=== PATIENT | female | born 1965 | race Caucasian/White ===

== ENCOUNTER → 2020-10-29 12:31 | Outpatient (CLI) | payer OTHER, SELFPAY ==
[2020-10-20 08:46] VITALS: BMI 24.3
--- NOTE | 2020-10-29 12:33 | US_ITS ---
STUDY: RENAL ULTRASOUND - COMPLETE REASON FOR EXAM: Female, 55 years old. UTEROVAGINAL PROLAPSE OF BLADDER TECHNIQUE: Ultrasound evaluation of the kidneys was performed with real-time and static medrano-scale imaging. COMPARISON: None. FINDINGS: RIGHT KIDNEY: Normal location of the right kidney, which is normal in size. The right kidney measures 9.5 cm x 5.5 cm x 4.2 cm. There is a normal cortex of the right kidney. The renal cortex measures 1.2 cm. There is no right renal mass or cyst. There are no right renal calculi. There is mild hydronephrosis of the right kidney. DISTAL RIGHT URETER: There is non-visualization of the distal right ureter. There is no demonstrated right ureterovesical junction calculus. There is a visualized right ureteral jet. LEFT KIDNEY: with mild renal atrophy. The left kidney measures 8.4 cm x 4.8 cm x 6.1 cm. There is a normal cortex of the left kidney. The renal cortex measures 1.4 cm. There is no left renal mass or cyst. There are no left renal calculi. There is no left hydronephrosis. DISTAL LEFT URETER: There is non-visualization of the distal left ureter. There is no demonstrated left ureterovesical junction calculus. There is a visualized left ureteral jet. BLADDER: The distended urinary bladder has a volume of 532 ml. There is a normal wall thickness of the distended urinary bladder. There is no demonstrated mass within the urinary bladder. There are no demonstrated bladder calculi. US/Kidney and Bladder IMPRESSION: Mild degree of cortical atrophy of the left kidney. Mild right hydronephrosis. Electronically Signed: Xiang Chadwick MD at 15:12 EDT , Service support ,
== END ==
PROVIDERS: PCP Family Medicine; Referring Provider Urology; Visit Provider Urology
DX: N81.4 Uterovaginal prolapse, unspecified (principal); N28.9 Disorder of kidney and ureter, unspecified
CPT/HCPCS: 76770

== ENCOUNTER 2020-10-30 11:58 | Observation (INO) | payer OTHER, SELFPAY ==
[2020-08-13 10:32] VITALS: BMI 24.3
[2020-10-20 08:46] VITALS: BMI 24.3
--- NOTE | 2020-10-23 10:46 | EKG12_ITS ---
Test Reason : PRE OP Blood Pressure : / mmHG Vent. Rate : 057 BPM Atrial Rate : 057 BPM P-R Int : 162 ms QRS Dur : 104 ms QT Int : 396 ms P-R-T Axes : 022 065 050 degrees QTc Int : 385 ms Sinus bradycardia Otherwise normal ECG Confirmed by ROGELIO AGUILA, PEMA ([id number]), continuity editor KRYSTA HAHN ([id number]) on 10/26/2020 10:49:35 AM Referred By: Kelly Celaya Confirmed By:PEMA MERCADO MD
[2020-10-28 12:36] LABS: Absolute Lymphocyte Count 2.09 X10^3/uL (0.83-4.51); Absolute Neutrophil Count 2.4 X10^3/uL (2.0-7.7); Eosinophil# 0.08 X10^3/uL; Eosinophils% 1.6 % (0-5); Hematocrit 39.7 % (37-47); Lymphocyte # 2.09 X10^3/ul (0.83-4.51); Lymphocyte % 42.6 % (19-41); Mean Corp Hgb Conc 32.7 g/dL (32-36); Mean Corpuscular Hgb 29.3 pg (27.0-32.0); Mean Corpuscular Volume 89.6 fL (81-99); Mean Platelet Vol. 8.9 fl (6.2-12.0); Monocyte# 0.38 X10^3/uL; Monocyte% 7.7 % (0-10); NRBC Flagged by Analyzer 0 % (0-5); Neutrophil # 2.35 X10^3/uL (2.7-7.7); Neutrophil % 47.9 % (47-70); Platelet Count 247 K/mm3 (150-450); RBC Distribution Width CV 12.4 % (11.6-14.6); RBC Distribution Width SD 40.7 fl (35.1-43.9); Red Blood Count 4.43 M/mm3 (4.2-5.4); White Blood Count 4.9 K/mm3 (4.4-11.0)
[2020-10-28 13:00] LABS: Anion Gap 5 (5-15); BUN 22 mg/dL (7-18); BUN/Creat Ratio 17.9 RATIO (10-20); Calcium,Total 9.1 mg/dL (8.5-10.1); Chloride 104 mmol/L (98-107); Creatinine, Serum 1.23 mg/dL (0.55-1.02); EST Glomerular Filtration Rate 49 mL/min (>60); Est Glom Filt Rate - Afr Amer 59 mL/min (>60); Glucose 84 mg/dL (74-106); Sodium Level 140 mmol/L (136-145)
[2020-10-28 13:01] LABS: Magnesium 2.3 mg/dL (1.6-2.6)
--- NOTE | 2020-10-29 16:50 | HP.PCM_ITS ---
History and Physical Date of Admission: 10/29/20 [facility] [id number] [place] [address] [phone] OFFICE VISITDate of Service: 10/20/20 MR#:[id number]: PACHECO KING [facility] #:[id number]:[id number] Provider:Dr. 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 Is patient in pain?: No Allergies No Known Allergies Allergy (Verified 08/13/20 10:25) Medications lamotrigine 150 mg tablet 300 mg PO ONCE tablet 08/13/20 [History Confirmed 10/20/20] multivitamin 1 tablet PO DAILY 08/13/20 [History Confirmed 10/20/20] olanzapine 5 mg tablet 5 mg PO DAILY 08/13/20 [History Confirmed 10/20/20] estradiol 1 appful VAGINAL DAILY 10/20/20 [History Confirmed 10/20/20] Is last menstrual period known: No Post menopausal: No Patient : No : No [facility], [facility] Medical History Bipolar 1 disorder, depressed Surgical History H/O unilateral salpingectomy S/P dilation and curettage Status post skin graft Family History Father Myocardial infarction Other Bipolar 1 disorder, depressed Esophageal cancer Social History Smoking Status: Never smoker alcohol intake: never substance use type: does not use caffeine: Yes what type of physical activity do you participate in: none seatbelt use: always do you feel safe at home: Yes additional social history: -[facility]jon [facility] TVH BS Details: PACHECO KING is a 55 year old who presents for preop appointment for uterovaginal prolapse, undergoing reapir with Dr Self. Female Reproductive History Menopausal Symptoms: No night sweats Pregancy History 7 Elective abortions Hx Para 4 Spontaneous abortions 2 Hx # Term Pregnancies Ectopic pregnancies 1 Hx # Pregnancies Multiple births # of living children Past Pregnancies Del. Date Name GA/Weeks Outcome Route Bth Weight Infant Gen Labor Lgth Anesthesia Del Locatn Provider FOB Unknown Fei Unknown Julien Unknown Mei Unknown Mamta ROS Const Constitutional: Denies fatigue, night sweats, weight gain or weight loss ENT ENT: Reports system reviewed and no additional complaints, except as documented Cardio Card: Denies chest pain Resp Resp: Denies cough or dyspnea GI GI: Reports as per HPI; Denies abdominal pain, constipation, nausea or vomiting : Denies nipple discharge, urinary frequency, urinary incontinence, urinary hesitancy, urinary urgency, vaginal discharge, vaginal dryness, vaginal odor or vaginal pruritus Musc Musc: Denies arthralgias, back pain or muscle weakness Skin Skin/Breast: Denies alopecia, change in hair, dry skin, breast mass, breast pain, breast skin changes or nipple discharge Neuro Neuro: Reports system reviewed and no additional complaints, except as documented Psych Psych: Reports system reviewed and no additional complaints, except as documented Endo Endo: Denies cold intolerance, excessive sweating, heat intolerance or polydipsia Sebastián/Lymph Hematologic/Lymphatic: Denies easy bleeding, Denies easy bruising and Denies lymphadenopathy Exam Const General: cooperative, healthy appearing, comfortable, no acute distress and well developed Orientation: alert HENIL Head: normal to inspection and normocephalic Ears: hearing grossly normal bilaterally and external ears normal Nose: external nose normal and nares normal Face and sinus: normal facial exam Neck Neck: normal visual inspection and no lymphadenopathy Thyroid: thyroid normal Chest Chest palpation & inspection: normal inspection of the chest Resp Effort & Inspection: normal respiratory effort Auscultation: clear to auscultation bilaterally Cardio Rate: regular rate Rhythm: regular rhythm Heart Sounds: S1 normal and S2 normal GI Inspection: normal to inspection and non-distended Palpation: soft and no hepatosplenomegaly Musc Other: gross motor intact no deficits, full bilateral strength Skin General: no rashes or lesions noted Neuro General: patient alert, patient awake, moves all extremities and no focal motor deficits Motor: muscle tone normal throughout Extrem General: normal to inspection and no pedal edema Psych Appearance: grossly normal Mental Status: mental status grossly normal Affect: normal affect Speech and Movement: speech and movement normal Coding Level of Care Code No Charge Diagnoses Incomplete uterovaginal prolapse N81.2 Assessment and Plan Assessment and Plan (1) Incomplete uterovaginal prolapse: Status: Chronic Comment: plan TVH unilateral salipingectomy combo case with madina. Plan - Dr. Kelly Celaya MD: After discussing the patient's diagnosis and treatment plan options, patient wishes to proceed with surgical management. I have discussed with the patient the risks, benefits, and alternatives of the procedure which include but are not limited to risks of anesthesia, bleeding, infection, possible damage to bowel, bladder, or surrounding vasculature which could lead to additional surgery to evaluate any complications. Patient agrees to procedure and wishes to proceed. ACOG/uptodate references given for additional information regarding procedure. UPDATE- I have seen the patient and performed any clinically relevant updates to the history and physical exam. Kelly Celaya MD
[2020-10-30] VITALS (13 sets, daily range): BP systolic 92–116; BP diastolic 57–76; PULSE 56–73; RESP 14–18; TEMP 36.3–36.8; O2SAT 90–100; BMI 25.0
[2020-10-30] MEDS: Phenazopyridine 95 MG Tablet 190 MG PO (06:30)
[2020-10-30] MEDS: Celecoxib 200 MG Capsule 400 MG PO (06:31)
[2020-10-30] MEDS: Gabapentin 600 MG Tablet PO (06:31)
[2020-10-30] MEDS: Acetaminophen 500 MG Tablet 1000 MG PO ×3 (06:31→22:59)
[2020-10-30] MEDS: Scopolamine 1mg/72hr Patch 1 PATCH TD (06:32)
[2020-10-30] MEDS: Enoxaparin 40 MG/0.4 ML Syringe SC (06:33)
[2020-10-30] MEDS: Lactated Ringers 1,000 ML 40 ML IV ×2 (06:33→10:24)
[2020-10-30] MEDS: dexAMETHasone 10 MG/ML Vial 8 MG IV (06:34)
[2020-10-30] MEDS: Cefazolin 2 GM in 0.9% Normal Saline 100 ML IV (07:28)
--- NOTE | 2020-10-30 07:30 | HYST_PTH ---
PATIENT: PACHECO KING LOC: MS3 U#:[id number] AGE/SX: 55/F ROOM: RI317 RE10/30/[address]: Dr. Kelly Celaya MD : 1965 BED: 1 DIS: 10/31/2020 SPEC #: [id number] RECD: 10/30/20 12:55 STATUS: HAILE POLLACK #: [id number] PASCUAL: 10/30/20 07:[address]: Kelly Celaya DEPT: SURGICAL PATHOLOGY RECD BY: Mae Hastings ENTERED: 10/30/20 13:25 SP TYPE: HYSTERECT OTHR DR: MD Dr. Inez Ayala MD Dr. Robert Hart, MD Tissues: Uterus, NOS Procedures: Surgery Specimen Level V HEADER OPERATION: ERAS, vaginal hysterectomy, right salpingectomy PRE-OP DIAGNOSIS: Incomplete uterovaginal prolapse N81.2 TISSUE SUBMITTED: Uterus, cervix and right fallopian tube MICROSCOPIC DIAGNOSIS Uterus, hysterectomy: Cervix ? nabothian cysts and mild chronic inflammation. Endometrium ? proliferative endometrium. Endometrial polyp ? simple hyperplasia without atypia. Myometrium ? superficial adenomyosis. Right fallopian tube ? no pathologic change. AM:kayla 11/03/2020 MICROSCOPIC DESCRIPTION Slides are reviewed. GROSS DESCRIPTION Received in fixative is one container labeled with the patient's name and designated uterus, cervix and right fallopian tube. The specimen consists of a hysterectomy specimen consisting of uterus with cervix and detached one fallopian tube identified as right fallopian tube. The uterus with cervix weighs 105 gm and measures 10 x 6 x 4 cm. The serosal surface is ziegler, glistening. The ectocervical mucosa is unremarkable. The external os is oval and patulous in contour. The endocervical canal measures 3 cm in length and the endocervical mucosa is ziegler, glistening and unremarkable. The triangular endometrial cavity measures 4.5 cm in length and 2.5 cm in width. The endometrium shows a ziegler-pink polyp at the fundus measuring 1.5 x 1 x 0.2 cm. The myometrial wall underneath the polyp is not indurated. The rest of the endometrium is ziegler, congested, glistening and measures 0.1 cm in thickness. Sections of the uterine wall do not reveal any mass lesion and measures up to 2.5 cm in thickness. The detached right fallopian tube measures 3.5 cm in length and 0.5 cm in diameter. The fimbrial end is identified. Sections do not reveal any mass lesion. Weed Burner sections are submitted in eight cassettes as follows: 1??anterior cervix, 2 - posterior cervix, 3 & 4 - anterior uterine wall, 5 & 6 - posterior uterine wall, 7??endometrial polyp with underlying uterine wall, entirely submitted, 8 - right fallopian tube. / CLAUDIO:kayla 10/30/20 TC:1 CPT: 74836
--- NOTE | 2020-10-30 07:34 | PCM.OPRPT ---
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 Preoperative antibiotics and SCDs and Velazco catheter was placed inside the bladder. Weighted speculum was placed in the vagina and the anterior and posterior lip of the cervix was grasped with 2 Rosy clamps and circumferentially injected with dilute vasopressin. A circumferential incision was made with a scalpel and the posterior cul-de-sac was entered into sharply and a longneck speculum was placed. The anterior cul-de-sac was also dissected down and entered into sharply and the uterosacral ligaments were clamped cut and suture ligated bilaterally followed by the cardinal ligaments which were Clamped cut and suture ligated bilaterally with 0 Monocryl. The uterus serially descended and progressive bites were taken bilaterally up to the level of the utero-ovarian ligament Which was first double ligated with 0 Monocryl and 0 Vicryl on the right side. Diploic adhesions to the posterior left uterine wall and left pelvic sidewall in the cul-de-sac were noted and taken down sharply with no bowel involvement. Danna was placed over the area after adhesions were removed. The utero-ovarian ligament was clamped across and cut after being double ligated with 0 Monocryl 1-0 Vicryl. Excellent hemostasis was noted except for the cuff which would be remedied with cuff closure. Posterior peritoneum was reapproximated along with the cuff closure, incorporating the bilateral uterosacral ligaments. The vagina was closed with [id number] 0 Vicryl pop offs including the posterior and anterior peritoneum in the reapproximation. Excellent hemostasis was noted. All instruments removed from the vagina clear urine was noted at the end of the procedure and dr painter then began her portion of the procedure. Grafts/Implants Used: none Complications none Admit VTE Documentation VTE Present on Admission: No VTE Mechan Device Prophylaxis: SCD's VTE Pharm Prophylaxis ordered?: Yes Procedures Urinary/Genital 52xxx-59xxx: 73740 TVH+BS/O <250gr uterus
--- NOTE | 2020-10-30 07:38 | PCM.DC ---
Discharge Instructions Diet Discharge Diet: No restrictions Activity Discharge Activity: Return to Normal Activity, May Not Drive (while taking narcotic pain medications.) and May Shower May resume sexual activity in: 6-8 weeks Dressing / Incision Call your doctor if your incision/area has: Continuous Slow Oozing, Sudden Increased Bleeding, Increased Pain/ Swelling, Increased Redness and Foul Smelling Discharge Call your doctor if you observe: Fever of 101 or Higher, Inability to urinate, Inability to have a bowel movement and Using more than 1 pad per hour Follow Up Care Please Follow Up With: Kelly Celaya MD Test Results: Test results from this visit will be discussed in further detail at your follow-up appointment, if applicable. Discharge Plan Admission Primary Reason for Your Visit: hysterecotmy and pelvic floor surgery Attending Provider: Kelly Celaya Primary Care Provider: Herve Urrutia Consulting Providers: Inez Beltran ; Ryley Peters Discharge Orders/Prescriptions Prescriptions: New naproxen 250 MG tablet 250 - 500 mg PO Q8H PRN PRN (Reason: MILD PAIN) Qty: 30 RF: 1 oxycodone-acetaminophen [Percocet] 5-325 mg tablet 1 tab PO Q6H PRN (Reason: pain) 7 Days Qty: 20 RF: 0 Continued olanzapine 5 mg tablet 5 mg PO 0100 RF: 0 lamotrigine 150 mg tablet 300 mg PO 0100 RF: 0 multivitamin Tablet 1 tablet PO DAILY RF: 0 estradiol [Estrace] 0.01 % (0.1 mg/gram) cream 1 appful vaginal DAILY RF: 0 Referrals / Follow Up: Herve Urrutia MD [Primary Care Provider] -
[2020-10-30] MEDS: Vasopressin 20 UNITS/ML Vial (07:51)
[2020-10-30 08:06] LABS: Bedside Glucose 83 mg/dL (70-110)
--- NOTE | 2020-10-30 08:25 | OP.PCM_ITS ---
Problems Associated Problem List Diagnoses (1) Incomplete uterovaginal prolapse: (2) Stress incontinence: Report of Operation Date of Procedure: 10/30/20 Pre-Operative Diagnosis: Incomplete uterovaginal prolapse, stress urinary incontinence Post-Operative Diagnosis: Same Surgery/Procedure Performed:: posterior repair, midurethral sling, cystourethroscopy Surgeon: Inez Beltran Type of Anesthesia: General Estimated Blood Loss (mL): 20cc Description of Procedure: The patient is a 55-year-old female with pelvic organ prolapse who presented to the office and elected for definitive surgical intervention after being evaluated with urodynamics, cystoscopy and given intervention options. Informed consent was obtained. The patient was taken to the operating room placed on the operating room table. Anesthesia monitored the head, neck, airway, IV access and vital signs throughout the case. Once anesthesia was appropriately administered the patient was placed into dorsal lithotomy position was prepped and draped in usual sterile fashion. At this time Dr. Celaya proceeded with a hysterectomy and closure of the vaginal cuff. The case was then turned to nh. At this time the anterior compartment revealed intact Rugae with minimal apical defect. The posterior wall revealed decreased perineal body support with a distal rectocele. The posterior wall was isolated and injected submucosally with vasopressin for hydrostatic dissection and hemostatic control. A full-thickness incision was made through the mucosa. Sharp and blunt dissection was performed bilaterally until the rectovaginal fascia was identified. This was brought together in a 2 layer repair and extended down into the perineal body. The vaginal mucosa was minimally trimmed and then the incision was closed with running interlocking 2-0 Vicryl. At this time the mid urethral sling was performed. The mid urethra was isolated and injected submucosally with vasopressin. A midline vertical incision approximately 2 cm in length was then made. Sharp and blunt dissection was performed on either side of the urethra. Using the [place] trochars, the sling was placed without difficulty into the obturator complexes. It was positioned using the tensioning suture which was then cut. It lay against the urethra without tension and flat nature. The incision was closed using running interlocking 2-0 Vicryl. At this time a cystourethroscopy was performed through the urethra under direct visualization. There was no evidence of anterior defect at this time. Bilateral ureteral orifices were clearly visualized on the area of the trigone. There were no injuries to the urinary bladder or foreign bodies within the urinary bladder. There were no other mucosal abnormalities identified. Bilateral ureteral jets were clearly observed. At this time the cystoscope was removed and the Tucker catheter was replaced. The vagina was packed using vaginal packing and estrogen cream. The patient was then awakened and taken to the recovery room in good condition. There were no complications during this procedure. Grafts/Implants Used: Altis midurethral sling Complications none Admit VTE Documentation VTE Present on Admission: Yes VTE Mechan Device Prophylaxis: SCD's VTE Pharm Prophylaxis ordered?: Yes
--- NOTE | 2020-10-30 08:27 | PCM.DC ---
Discharge Instructions Diet Discharge Diet: No restrictions Activity Discharge Activity: May Shower May resume sexual activity in: 6-8 weeks Lifting Restrictions: 5 pounds for 8 weeks, no exercise, no strenuous activity, no vacuuming Dressing / Incision Call your doctor if your incision/area has: Continuous Slow Oozing, Sudden Increased Bleeding, Increased Pain/ Swelling, Increased Redness and Foul Smelling Discharge Call your doctor if you observe: Fever of 101 or Higher, Inability to urinate, Inability to have a bowel movement and Using more than 1 pad per hour Follow Up Care Please Follow Up With: Kelly Celaya MD When: and Ruyb Test Results: Test results from this visit will be discussed in further detail at your follow-up appointment, if applicable. Discharge Plan Admission Primary Reason for Your Visit: hysterecotmy and pelvic floor surgery Attending Provider: Kelly Celaya Primary Care Provider: Herve Urrutia Consulting Providers: Inez Beltran ; Ryley Peters Discharge Orders/Prescriptions Prescriptions: New naproxen 250 MG tablet 250 - 500 mg PO Q8H PRN PRN (Reason: MILD PAIN) Qty: 30 RF: 1 oxycodone-acetaminophen [Percocet] 5-325 mg tablet 1 tab PO Q6H PRN (Reason: pain) 7 Days Qty: 20 RF: 0 cephalexin [cephalexin] 500 MG capsule 500 mg PO Q12 3 Days Qty: 6 RF: 0 Continued olanzapine 5 mg tablet 5 mg PO 0100 RF: 0 lamotrigine 150 mg tablet 300 mg PO 0100 RF: 0 multivitamin Tablet 1 tablet PO DAILY RF: 0 estradiol [Estrace] 0.01 % (0.1 mg/gram) cream 1 appful vaginal DAILY RF: 0 Referrals / Follow Up: Herve Urrutia MD [Primary Care Provider] -
[2020-10-30] MEDS: Ondansetron 4 MG/2 ML Vial IV (09:30)
[2020-10-30] MEDS: Estrogens,Conj. 1 Tube 1 DOSE (09:42)
[2020-10-30] MEDS: Lactated Ringers 1,000 ML 70 ML IV ×2 (10:29→18:41)
[2020-10-30] MEDS: Ketorolac 30 MG/ML Syringe IV ×3 (13:14→22:59)
[2020-10-30] MEDS: 0.9% Saline Lock 10 ML Syringe IV (13:15)
[2020-10-30] MEDS: Docusate Sodium 100 MG Capsule PO (20:38)
[2020-10-30] MEDS: OLANZapine 2.5 MG Tablet 5 MG PO (22:49)
[2020-10-30] MEDS: lamoTRIgine 150 MG Tablet 300 MG PO (22:50)
[2020-10-31 02:57] VITALS: BP 93/56; PULSE 55; RESP 18; TEMP 37.2; O2SAT 96
[2020-10-31] MEDS: Acetaminophen 500 MG Tablet 1000 MG PO ×2 (05:52→13:32)
[2020-10-31] MEDS: Ketorolac 30 MG/ML Syringe IV ×2 (05:52→12:06)
[2020-10-31 07:26] VITALS: O2SAT 94
[2020-10-31 07:43] LABS: Hematocrit 34.6 % (37-47); Mean Corp Hgb Conc 31.8 g/dL (32-36); Mean Corpuscular Hgb 28.6 pg (27.0-32.0); Mean Corpuscular Volume 90.1 fL (81-99); Mean Platelet Vol. 9.3 fl (6.2-12.0); Platelet Count 179 K/mm3 (150-450); RBC Distribution Width CV 12.6 % (11.6-14.6); RBC Distribution Width SD 41.5 fl (35.1-43.9); Red Blood Count 3.84 M/mm3 (4.2-5.4); White Blood Count 9.9 K/mm3 (4.4-11.0)
--- NOTE | 2020-10-31 08:03 | PN.OBGYN_ITS ---
Subjective Subjective Patient doing well without complaints. Tolerating PO. Ambulating without difficulty. Denies chest pain, shortness of breath, calf pain/swelling, fevers, chills, lightheadedness. Objective Data Objective Data Vital Signs: Vital Signs Temp Pulse Resp BP Pulse Ox 98.9 F 55 L 18 93/56 L 96 10/31/20 02:57 10/31/20 02:57 10/31/20 02:57 10/31/20 02:57 10/31/20 02:57 Oxygen Flow Rate (L/min) 2 Oxygen Delivery Method Room Air Weight: 134 lb 7.712 oz Body Mass Index (BMI) 25.0 Intake & Output: Intake and Output for Last 24 Hours 10/29/20 10/30/20 10/31/20 23:59 23:59 23:59 Intake Total 3590.83 / 3590.83 1092.17 / 1092.17 Output Total 1775 / 1775 700 / 700 Balance 1815.83 / 1815.83 392.17 / 392.17 Lab / Micro Data Result Diagrams: 10/31/20 06:39 10/28/20 11:44 Labs: Laboratory Results - last 24 hr 10/30/20 10/31/20 06:12 06:39 WBC 9.9 RBC 3.84 L Hgb 11.0 L Hct 34.6 L MCV 90.1 MCH 28.6 MCHC 31.8 L RDW Std Deviation 41.5 RDW Coeff of Adenike 12.6 Plt Count 179 MPV 9.3 POC Glucose 83 Micro: Microbiology 10/28/20 11:09 Interface Orders SARS-CoV-2 Antigen (Rapid) - Final ROS Constitutional Constitutional: Reports systems reviewed and no addt'l complaints, except as d ocumented Cardiovascular Cardiovascular: Reports systems reviewed and no addt'l complaints, except as documented Respiratory/Chest Respiratory/Chest: Reports systems reviewed and no addt'l complaints, except as documented Gastrointestinal Gastrointestinal: Reports systems reviewed and no addt'l complaints, except as documented Physical Exam Const alert, oriented x3 and no apparent distress HEENT Head and Scalp: atraumatic Resp normal respiratory effort GI soft to palpation and non-tender Assessment & Plan (1) S/P vaginal hysterectomy: COMMENT: combo case with madina for prolapse. unilateral salpingectomy. PLAN: patient is s/p tvh pelvic floor repair POD 1 1. routine ERAS protocol postop care- increase ambulation, encourage oral intake and oral control of pain. lovenox and scds for dvt prophylaxis, patient stable for discharge to home. (2) Stress incontinence:
[2020-10-31 08:39] VITALS: BP 82/47; PULSE 63; RESP 16; TEMP 36.8; O2SAT 95
[2020-10-31] MEDS: Lactated Ringers 1,000 ML 999 ML IV (08:57)
[2020-10-31] MEDS: Docusate Sodium 100 MG Capsule PO (08:58)
[2020-10-31] MEDS: Multivitamins,Therapeutic Tablet 1 TABLET PO (08:58)
[2020-10-31] MEDS: Enoxaparin 40 MG/0.4 ML Syringe SC (08:58)
[2020-10-31 11:07] VITALS: BP 89/53; PULSE 61; RESP 16; TEMP 37; O2SAT 96
--- NOTE | 2020-10-31 11:19 | NURSING ---
Dr. Beltran notified pt voided 450 cc, and residual of [address] Beltran states she can go home but needs to void every 2 hours.
[2020-10-31] MEDS: 0.9% Saline Lock 10 ML Syringe IV (12:06)
[2020-10-31 13:26] VITALS: BP 91/52; PULSE 62; RESP 18; TEMP 36.7; O2SAT 97
== END 2020-10-31 14:00 | disposition home or self-care (01) ==
LOC: SDC 12:22 → MS3 12:22
PROVIDERS: Anesthesiology; Urology; Admitting Provider Obstetrics & Gynecology; PCP Family Medicine; Referring Provider Obstetrics & Gynecology; Visit Provider Obstetrics & Gynecology
PROC: (CPT 58260; principal; 2020-10-30 07:10)
PROC: (CPT 57260; 2020-10-30 07:10)
DX: N81.2 Incomplete uterovaginal prolapse (principal); N80.0 Endometriosis of uterus; N84.0 Polyp of corpus uteri; N88.8 Other specified noninflammatory disorders of cervix uteri; N39.3 Stress incontinence (female) (male); R39.15 Urgency of urination; R35.0 Frequency of micturition; N95.2 Postmenopausal atrophic vaginitis; F31.9 Bipolar disorder, unspecified; G25.81 Restless legs syndrome; Z20.828 Contact with and (suspected) exposure to other viral communicable diseases; Z79.899 Other long term (current) drug therapy; Z78.0 Asymptomatic menopausal state
CPT/HCPCS: 00944; 57250; 57288; 58262; 36415; 80048; 82962; 83735; 85025; 85027; 86850; 86900; 86901; 87426; 88307; 93005; 94762; 96372; 96374; 99218; 99251; C9803; J7120; A4216; G0378; G0463; J2405; J3475